=== PATIENT | male | born 1955 | race Caucasian/White ===

== ENCOUNTER → 2019-02-20 | Outpatient (CLI) | payer OTHER ==
[~2019-02-20] MED LIST: ATOR20 PO; DICL25ER; EZET10-20 PO; LISI20 PO; LOVA40 PO; Norco 10-325 T1 EACH PO; Omeprazole20 M1 PO; Prilosec Otc20 MG; Silvadene20 GM TOP; Simvastatin20 MG PO; TAMS.4ER PO
== END | disposition home or self-care (01) ==
LOC: LAB SHORT 08:16 → PLD 08:16
DX: D18.01 Hemangioma of skin and subcutaneous tissue (principal)
CPT/HCPCS: 88305

== ENCOUNTER 2022-05-12 05:51 | Day surgery (SDC) | payer MEDICARE, OTHER ==
[~2022-05-12] VITALS: Ht 177.8 cm; Wt 97.9 kg
[~2022-05-12 05:51] MED LIST changes: +CEFD300 PO; +Oxybutynin Chlo10 MG PO; +Pyridium200 MG PO
[2022-05-12] MEDS ORDERED: SILD50TA PO (06:38)
--- NOTE | 2022-05-12 07:15 | NUR ---
History, Chart, Medications and Allergies reviewed before start of procedure. Patient confirms NPO status and agrees with scheduled surgery. PT BELONGINGS PLACED UNDERNEATH [facility] FOR SAFEKEEPING.
--- NOTE | 2022-05-12 07:59 | NUR ---
05/12/22 0759 Laura Dixon NO PREOP ANTIBIOTICS ORDERED PER .
--- NOTE | 2022-05-12 11:18 | NUR ---
Dressing to procedure site clean, dry, intact with no visible drainage, swelling, erythema or bruising noted. PT STATES NAUSEA HAS RESOLVED.
--- NOTE | 2022-05-12 11:28 | NUR ---
Discharge instructions reviewed with patient. Patient verbalizes understanding. Copy given to patient to take home.
--- NOTE | 2022-05-12 11:51 | NUR ---
Discharged via wheelchair to private car for ride home.
== END 2022-05-12 11:51 | disposition home or self-care (01) ==
LOC: ORSCMMR 05:51 → ORD 07:30 → ORSCMMR 11:51
PROVIDERS: Surgery
PROC: 0WQF0ZZ Repair Abdominal Wall, Open Approach (ICD-10-PCS; principal; 2022-05-12 07:30)
PROC: 0YUA4JZ Supplement Bilateral Inguinal Region with Synthetic Substitute, Percutaneous Endoscopic Approach (ICD-10-PCS; principal; 2022-05-12 07:30)
PROC: 8E0W4CZ Robotic Assisted Procedure of Trunk Region, Percutaneous Endoscopic Approach (ICD-10-PCS; principal; 2022-05-12 07:30)
DX: K40.90 Unilateral inguinal hernia, without obstruction or gangrene, not specified as recurrent (principal); K40.91 Unilateral inguinal hernia, without obstruction or gangrene, recurrent; K42.9 Umbilical hernia without obstruction or gangrene; R10.31 Right lower quadrant pain; I10 Essential (primary) hypertension; Z79.899 Other long term (current) drug therapy
CPT/HCPCS: 49650; 49651; 49585; S2900; A9270; C1781; J1100; J1885; J2250; J2405; J2704; J2795; J3010; J7120